=== PATIENT | female | born 1970 | race Caucasian/White ===

== ENCOUNTER 2024-07-17 23:01 | Inpatient (IN) | payer OTHER, SELFPAY ==
[2024-07-18] VITALS (11 sets, daily range): BP systolic 100–141; BP diastolic 61–85; PULSE 64–85; RESP 11–19; TEMP 35.9–36.7; O2SAT 92–100; BMI 26.7
--- NOTE | 2024-07-18 | PATH_ITS ---
[facility] Accession Number: [id number] No. of containers..01 Tissue . 01 Material submitted: . gallbladder - GALLBLADDER . 01 Diagnosis: GALLBLADDER, CHOLECYSTECTOMY: Acute and chronic cholecystitis with obstructing cholelithiasis. Benign reactive lymph node. MRV 07/23/2024 1535 Local . 01 Electronically signed: . Latasha Martel DO, Pathologist NPI- [id number] . 01 Gross description: . Received in formalin with two identifiers and gallbladder is an intact gallbladder, 8.0 x 3.3 x 3.0 cm. The external surface is violaceous and unremarkable. A brown lymph node candidate is identified, 1.0 cm in greatest dimension. The cystic duct margin is inked blue. The lumen contains multiple yellow bosselated calculi, up to 2.4 cm in greatest dimension grossly obstructing the neck of the gallbladder and admixed with a small amount of green-brown, semisolid bile. The mucosa is brown, roughened and trabecular with no distinct lesions identified. The bass average 0.5 cm thick. Crocheter Hand sections to include one-half of the bisected lymph node candidate, margin, and full-thickness sections are submitted in A1. ([id number]) /MRV 07/21/[id number] Local . 01 Pathologist provided ICD-10: K80.13 . 01 CPT . 674940 Specimen Comment: A courtesy copy of this report has been sent to [phone] Performed at: [address] [facility] [address], [place], [place] [id number] MD Miguel Rosas MD Phone: [phone]
[2024-07-18] MEDS: HYDROMORPHONE 0.5 MG INJ IV ×2 (01:25→05:47)
[2024-07-18] MEDS: LACTATED RINGERS 1,000 ML 75 ML IV ×2 (01:25→10:59)
[2024-07-18] MEDS: ONDANSETRON 4 MG/2 ML INJ IV (05:47)
[2024-07-18] MEDS: LACTATED RINGERS 1,000 ML 42 ML IV ×2 (09:53→12:22)
--- NOTE | 2024-07-18 10:08 | PM.HP.IH.1 ---
History of Present Illness History of Present Illness Date Patient Seen: 07/18/24 Time Patient Seen: 10:08 Chief complaint: Acute Cholecyotitis Narrative: Sophy is a 54-year-old woman who presents with symptomatic cholelithiasis, possibly acute cholecystitis. She was sent from the ER at [facility] last night. She reports that she had constant epigastric pain for the past 36 hours or so. She had an ultrasound that showed some thickening of her gallbladder wall. She reports that she has had symptoms of biliary colic for up to 10 years now. She has known gallstones. She has been worked up for gallstones in the past and has seen Dr. Shahid but the decision was made for no surgery. Last night in the ER her labs were normal but she has had some mild elevations in her liver enzymes in the past. [facility] Social History household members: spouse Smoking Status: Never smoker alcohol intake: current Meds Home Medications and Allergies Allergies Allergy/AdvReac Type Severity Reaction Status Date / Time No Known Drug Allergies Allergy Verified 07/18/24 00:46 Exam Vital Signs (past 8 hours): - 07/18/24 03:06 07/18/24 08:10 07/18/24 09:49 Temperature 97.1 F L 97.6 F 97.9 F Pulse Rate 64 67 77 Respiratory Rate 19 16 16 Blood Pressure 141/85 H 100/62 126/80 Pulse Oximetry 100 96 95 Oxygen Delivery Method Room Air Oxygen Flow Rate 0 0 Oxygen Delivery Method Room Air Oxygen Flow Rate 0 Const General: healthy appearing Resp Effort & Inspection: normal respiratory effort Assessment & Plan Assessment and plan (1) Acute cholecystitis: Status: Acute Plan Sophy is a 54-year-old woman with acute cholecystitis versus symptomatic cholelithiasis. We discussed the risks and benefits of proceeding with a laparoscopic cholecystectomy with intraoperative cholangiogram and she would like to proceed. We discussed postoperative dietary recommendations. We will administered Zosyn. Time-Based Coding :: [TOTAL MINUTES] spent with patient and on the chart (including review of chart, obtaining history, exam, reviewing outside data, placing orders, documenting exam and treatment plan, and counseling patient) on [DATE]. [employer] Document charge(s): No
--- NOTE | 2024-07-18 10:15 | DI.RAD.S_ITS ---
PROCEDURE: XR CHOLANGIOGRAM OPERATIVE INDICATIONS: lap melissa COMPARISON: None. FINDINGS: FINDINGS/IMPRESSION: Fluoroscopic imaging was performed for intraoperative localization. Please correlate with intraoperative findings. Dictated by: Darrin Hood M.D. on 07/18/2024 at 10:48 Approved by: Darrin Hood M.D. on 07/18/2024 at 10:49
[2024-07-18] MEDS: PIPERACILLIN/TAZO 3.375 GM in SODIUM CHLORIDE 0.9% 100 ML IV (10:20)
[2024-07-18] MEDS: ACETAMINOPHEN IV 1,000 MG/100 ML VIAL 400 MG IV (10:35)
--- NOTE | 2024-07-18 10:46 | SUR.OPER ---
Supine on padded OR bed, head on pillow, safety belt at thigh, left arm padded and tucked at side. Right arm secured on padded arm board <90 degrees abduction. Legs uncrossed. Padded footboard in place. Tape over blanket to secure lower legs.
[2024-07-18] MEDS: BUPIVACAINE 0.5% W/ EPI (PF) 30 ML VIAL INJ (10:56)
[2024-07-18] MEDS: iopamidoL 30 ML VIAL INJ (10:57)
--- NOTE | 2024-07-18 12:11 | P.OP_ITS ---
Operative Date/Time/Diagnoses Date of procedure: 07/18/24 Time of procedure: 12:11 Pre-op diagnosis: Acute cholecystitis Post-op diagnosis: same Procedure & Clinicians Procedure: Laparoscopic cholecystectomy with intraoperative cholangiogram Same procedure as scheduled: Yes Surgeon: Anthony Chavez Click Yes if Unassisted: Yes Anesthesia Type: General Operative Notes Findings: Hydrops of the gallbladder with large stones Estimated Blood Loss (mL): 20 Procedure in detail: The patient was given preoperative antibiotic. The patient was brought to the operating room, placed on the table in the supine position. General endotracheal anesthesia was induced. The abdomen was prepped and draped. A time-out was performed. We made a 1 cm infraumbilical incision. We dissected down to the base of the umbilical stalk using cautery. We grasped the umbilical stalk with a Gilma clamp to elevate the abdominal wall. We scored the fascia in the midline with cautery 1 cm. We pierced the peritoneum with a Peon clamp. The Tyrone port was placed and the abdomen was insufflated to 15 mmHg. A 5 mm 30 degree laparoscopic was inserted. There was no evidence of any injury from the entry. Next, we placed 5 mm ports in the subxiphoid position and right upper quadrant at the midclavicular line and anterior axillary line. The patient was then positioned in reverse Trendelenburg and the table was tilted to the left. The gallbladder was grasped at the dome and retracted cephalad. The gallbladder was quite distended and ruptured with retraction spilling out clear fluid consistent with hydrops of the gallbladder. We then dissected the cystic structures with a combination of hook cautery and blunt dissection. We obtained a critical view. Next, a cholangiogram was performed using the 6 [place] ureteral catheter. There was good flow of contrast into the duodenum and liver with no obvious filling defects. The cystic duct-common duct junction was well visualized. We then placed hemoclips on the cystic duct and artery and divided the cystic duct and artery sharply between the clips. The gallbladder was then dissected off the liver and placed in a specimen retrieval bag. We irrigated the right upper quadrant and all the aspirate returned clear. We then removed the 5 mm ports under direct vision we removed the Tyrone port. We then injected some local into the fascia and closed the fascia with 3 interrupted 0 Vicryl sutures. The skin incisions were closed with 4 Monocryl and Steri-Strips were applied. Band-Aids were applied over the Steri-Strips. EBL: 20 mL Specimen: Gallbladder with stones Complications: none Post-operative Condition: stable Disposition: PACU
--- NOTE | 2024-07-18 14:04 | CM.DANOTE ---
DCP Assessment Note: Pt is a 54yo female, resident of [place], is admitted s/p cholecystectomy. Pt lives in a house with her partner, Edilberto. Pt's Primary Care Provider is a PA at [facility] (could not remember name) and insurance is [employer] ([employer] Reviewed chart and discussed with multidisciplinary team pt's medical status and initial discharge needs. DCP met w/patient at bedside; introduced self and role. Patient was found in bed, alert and oriented, cooperative with assessment. Pt confirmed living situation and good support in partner. Pt expressed preference in discharge home, awaiting to be seen by surgeon for clearance. Pt confirms no other social needs identified at this time. Pt states she has plans to stay in a motel in [place] overnight before returning to [place]; has reservations for [employer] for Saturday, 07/19. Plan: Anticipating dc home with partner to transport on 07/18 or when medically cleared. CM team will follow closely for coordination of discharge plans. Celena Gupta [facility] Discharge Planning/Care Management CM Discharge Assessment Start: 07/17/24 23:27 Freq: Status: Active Protocol: Document 07/18/24 14:03 MW (Rec: 07/18/24 14:04 MW [id number]) Discharge Planning Assessment Assigned Lunchroom Attendant LUCRETIA [place] DPOA/Assigned Designee Name Johnny Christiano, Jordyn Advance Directives? No History Provided By Patient,Medical Record Prior Living Arrangements House Household Members significant other Type of transporation used prior to Drives own vehicle admit Independent with ADL's Yes Is patient alert and oriented? Yes Caregiver for Another No Discharge Plan Home Referrals Initiated None needed Whiteboard Updated in Patient Room with Yes name and ext. # of Lunchroom Attendant Review Status In Process Please Provide Date Initial DC 07/18/24 Assessment Was Performed Next Review Type Continued Stay Review
[2024-07-18] MEDS: LACTATED RINGERS 1,000 ML 100 ML IV (14:43)
--- NOTE | 2024-07-18 16:24 | PC.NURSE ---
D/c instructions reviewed with pt. IV removed. Pt exited via w/c with DITCH [employer]ANER to private vehicle.
== END 2024-07-18 16:23 | disposition home or self-care (01) | DRG 418 ==
PROVIDERS: Admitting Provider Surgery; Referring Provider Surgery; Visit Provider Surgery
PROC: 0FT44ZZ Resection of Gallbladder, Percutaneous Endoscopic Approach (ICD-10-PCS; CPT 47563; principal; 2024-07-18 10:15)
DX: K80.00 Calculus of gallbladder with acute cholecystitis without obstruction (principal); K82.1 Hydrops of gallbladder
CPT/HCPCS: 47563; 74300; 99222; J0131; J1100; J1171; J1885; J2405; J2543; J2704; J3010; Q9967